=== PATIENT | male | born 1995 | race Caucasian/White ===

== ENCOUNTER 2016-03-14 23:39 | Emergency (ER) | payer MEDICAID, SELFPAY ==
[~2016-03-14 23:39] MED LIST: AUGM875T27 PO; NEUR600T PO; OXYC-517 PO; OXYC1SOL PO; VALT500T PO
[2016-03-15] MEDS ORDERED: NORCO 5/325MG TABLET (BULK) As Ordered ONE (01:02)
--- NOTE | 2016-03-15 01:09 | EDDOCDS ---
Nurse's Notes [facility] Name: Carlos Garsia Age: 20 yrs Sex: Male : 1995 Arrival Date: 03/14/2016 Time: 23:39 Bed I3 / M3 Private MD: NO PRIMARY PHYSICIAN, . Diagnosis: Encounter for other orthopedic aftercare-removal of pre existing splint to Right lower extremity, replaced by orthoglass splint Presentation: 03/14 23:47 Presenting complaint: Patient states: Broke right ankle Tuesday. Was casted . kmg1 Today toes and and foot are numb and tingly. Calf is burning. Adult Sepsis Screening: The patient does not have new or worsening altered mentation. Patient's respiratory rate is less than 22. Systolic blood pressure is greater than 100. Patient has a qSOFA score of 0- Negative Sepsis Screen. Suicide/Homicide risk assessment- the patient denies having any suicidal and/or homicidal ideations and does not present with any other emotional, behavioral or mental health complaints. Status: Patient is not a vehicle service attendant or dependent. Transition of care: patient was not received from another setting of care. 23:47 Acuity: CECI Level 5 kmg1 23:47 Method Of Arrival: Walkin/Carried/Asstd kmg1 Triage Assessment: 23:49 General: Appears in no apparent distress, comfortable, Behavior is appropriate for age, kmg1 cooperative, pleasant. Pain: Location: lateral aspect of right toes and right calf Pain currently is 7 out of 10 on a pain scale. Quality of pain is described as burning, tingling, numb. Pt Declines HIV testing. Musculoskeletal: Cast intact Reports pain in right ankle, right calf, right Achilles and anterior aspect of right ankle Numbness in right toes and foot. Historical: - Allergies: No known drug Allergies; - Home Meds: 1. none - PMHx: Seasonal Allergies; - PSHx: Hernia repair; Appendectomy; - Social history: Smoking status: Chewing Tobacco No barriers to communication noted, The patient speaks fluent Stat[place], Speaks appropriately for age. - Family history: Not pertinent. - : The pt / caregiver states he / she is not on anticoagulants. Home medication list is obtained from the patient, [employer] import data. - Exposure Risk Screening:: None identified. Screenin/16 00:43 Screening information is obtained from the patient. Fall risk: No risks identified. lf1 Assistance ADL's: requires no assistance with activities of daily living. Abuse/DV Screen: The patient / caregiver reports he/she is: not in a situation that causes fear, pain or injury. Nutritional screening: No deficits noted. Advance Directives: Currently, there is no health care proxy. home support is adequate. Assessment: 00:43 Adult Sepsis Screening: The patient does not have new or worsening altered mentation. lf1 Patient's respiratory rate is less than 22. Systolic blood pressure is greater than 100. Patient has a qSOFA score of 0- Negative Sepsis Screen. General: Appears in no apparent distress, Behavior is. Pain: Location: right foot Pain currently is 6 out of 10 on a pain scale. Neurological: Level of Consciousness is awake, alert. EENT: No deficits noted. Cardiovascular: Chest pain is denied. Respiratory: Respiratory effort is even, unlabored. GI: Denies nausea, vomiting. Derm: cast in place to right LE, pt. reports numbness and tingling to foot with burning pain in calf. 01:06 Reassessment: Patient states feeling better. Patient states symptoms have improved. [facility] Vital Signs: 03/14 23:40 BP 165 / 86; Pulse 64; Resp 18 S; Temp 98.7(O); Pulse Ox 99% on R/A; Weight 86.64 kg dd6 (R); Height 5 ft. 9 in. (175.26 cm) (R); 03/15 01:00 BP 151 / 91; Pulse 78; Resp 18; Temp 98; Pulse Ox 98% ; jlm 03/14 23:40 Body Mass Index 28.21 (86.64 kg, 175.26 cm) dd6 Vitals: 03/14 23:40 Log In Time: March 14, 2016 at 23:38. dd6 ED Course: 23:40 Patient visited by Pollo Elena PCA. dd6 23:40 NO PRIMARY PHYSICIAN, . is Private Physician. dd6 23:40 Patient moved to Waiting dd6 23:41 Patient moved to Pre RCE dd6 23:49 Triage Initiated kmg1 03/15 00:10 Raheel Nagy PA is PHCP. mo1 00:10 Ian Shahid DO is Attending Physician. mo1 00:10 Patient moved to I3 / M3 mo1 00:23 Patient visited by Raheel Nagy PA. mo1 00:43 Patient visited by Ynes Garcia RN. lf1 00:43 The patient / caregiver is instructed regarding the plan of care and ED course. lf1 00:58 Jerome Nguyen is Referral Physician. mo1 01:00 Patient visited by Yarelis Troy, Radial Drill Operator. jlm 01:06 Farzaneh Andrea LPN is Primary Nurse. slm 01:07 Assist provider with fracture care cast removed from right lower leg. slm 01:08 Patient visited by Farzaneh Andrea LPN. slm 01:08 No IV's were initiated during this patient's visit. slm Administered Medications: 01:05 Drug: HYDROcodone-acetaminophen 4 pack- 1 packets [hydrocodone 5 mg-acetaminophen 325 slm mg tablet (1 tabs)] {Co-Signature: [facility] (Ynes Garcia RN).} Route: PO; Order Results: There are currently no results for this order. Outcome: 00:58 Discharge ordered by Provider. mo1 01:07 Discharge Assessment: Patient awake, alert and oriented x 3. No cognitive and/or slm functional deficits noted. Patient verbalized understanding of disposition instructions. patient administered narcotics - no. The following High Risk Discharge criteria are identified: None. Discharged to home with crutches. Condition: good. Discharge instructions given to patient, Instructed on discharge instructions, follow up and referral plans. medication usage, no driving heavy equipment, Demonstrated understanding of instructions, medications, Pt was receptive of discharge instructions/ teaching. Prescriptions given X 1. No special radiology studies were completed. Property :Personal belongings accompany Pt. 01:08 Patient left the ED. slm Signatures: Anabella Mansfield RN RN kmg1 Ynes Garcia,RN RN lf1 Pollo Elena, PHYSICAL THERAPY ASSISTANT INSTRUCTOR PHYSICAL THERAPY ASSISTANT INSTRUCTOR dd6 Raheel Nagy PA PA mo1 Farzaneh Andrea LPN LPN [facility] Yarelis Troy, Radial Drill Operator Unit [facility] Ynes Garcia RN [facility] MTDD
--- NOTE | 2016-03-15 01:09 | EDDOCDS ---
Physician Documentation [facility] Name: Carlos Garsia Age: 20 yrs Sex: Male : 1995 Arrival Date: 03/14/2016 Time: 23:39 Bed I3 / M3 Private MD: NO PRIMARY PHYSICIAN, . Disposition: 03/15/16 00:58 Discharged to Home/Self Care. Impression: Encounter for other orthopedic aftercare - removal of pre existing splint to Right lower extremity, replaced by orthoglass splint. - Condition is Stable. - Discharge Instructions: Ankle Fracture, Cast or Splint Care. - Prescriptions for [place] 5- 325 mg Oral Tablet - take 1 tablet by ORAL route every 6 hours As needed MDD: 4 tabs; 20 tablet. - Medication Reconciliation, Local Pharmacy Hours form. - Follow up: Jerome Nguyen; When: Tomorrow; Reason: Recheck today's complaints, Continuance of care. - Problem is new. - Symptoms are unchanged. Historical: - Allergies: No known drug Allergies; - Home Meds: 1. none - PMHx: Seasonal Allergies; - PSHx: Hernia repair; Appendectomy; - Social history: Smoking status: Chewing Tobacco No barriers to communication noted, The patient speaks fluent [place], Speaks appropriately for age. - Family history: Not pertinent. - : The pt / caregiver states he / she is not on anticoagulants. Home medication list is obtained from the patient, [employer] import data. - Exposure Risk Screening:: None identified. Vital Signs: 03/14 23:40 BP 165 / 86; Pulse 64; Resp 18 S; Temp 98.7(O); Pulse Ox 99% on R/A; Weight 86.64 kg / dd6 191.01 lbs (R); Height 5 ft. 9 in. (175.26 cm) (R); 03/15 01:00 BP 151 / 91; Pulse 78; Resp 18; Temp 98; Pulse Ox 98% ; jlm 03/14 23:40 Body Mass Index 28.21 (86.64 kg, 175.26 cm) dd6 Procedures: 01:06 Fracture care/splinting: Splint applied to lateral aspect of right calf, right ankle, mo1 lateral aspect of right foot, medial aspect of right calf and medial aspect of right foot using Orthoglass splint, applied by myself. Examined by me, post splint application: neurovascular intact, Patient tolerated well, prior plaster splint removed with ortho cutting saw and manual device to remove all splint. pt with resolution of calf tingling and toe tingling with cast removal. pt had new orthoglass splint, posterior and sugar tong splint applied to right lower extremity. pt nvi, pt tolerated well. . MDM: 00:57 Splint Affected Extremity ordered. mo1 00:59 HYDROcodone-acetaminophen 4 pack- 5 mg-325 mg 1 packets PO Per package directions; mo1 Dispense with patient. 1 po q4h prn for pain ordered. 01:05 Financial registration complete. [facility] Administered Medications: 01:05 Drug: HYDROcodone-acetaminophen 4 pack- 1 packets [hydrocodone 5 mg-acetaminophen 325 slm mg tablet (1 tabs)] {Co-Signature: lf1 (Ynes Garcia RN).} Route: PO; Signatures: Anabella Mansfield RN RN kmg1 Raheel Nagy PA PA mo1 Farzaneh Andrea LPN LPN slm Hook, Sandra [facility] Ynes Garcia RN lf1 MADDY
--- NOTE | 2016-03-17 02:09 | EDDOCDS ---
Nurse's Notes [facility] Name: Carlos Garsia Age: 20 yrs Sex: Male : 1995 Arrival Date: 03/14/2016 Time: 23:39 Bed I3 / M3 Private MD: NO PRIMARY PHYSICIAN, . Diagnosis: Encounter for other orthopedic aftercare-removal of pre existing splint to Right lower extremity, replaced by orthoglass splint Presentation: 03/14 23:47 Presenting complaint: Patient states: Broke right ankle Tuesday. Was casted . kmg1 Today toes and and foot are numb and tingly. Calf is burning. Adult Sepsis Screening: The patient does not have new or worsening altered mentation. Patient's respiratory rate is less than 22. Systolic blood pressure is greater than 100. Patient has a qSOFA score of 0- Negative Sepsis Screen. Suicide/Homicide risk assessment- the patient denies having any suicidal and/or homicidal ideations and does not present with any other emotional, behavioral or mental health complaints. Status: Patient is not a implementation services analyst or dependent. Transition of care: patient was not received from another setting of care. 23:47 Acuity: CECI Level 5 kmg1 23:47 Method Of Arrival: Walkin/Carried/Asstd kmg1 Triage Assessment: 23:49 General: Appears in no apparent distress, comfortable, Behavior is appropriate for age, kmg1 cooperative, pleasant. Pain: Location: lateral aspect of right toes and right calf Pain currently is 7 out of 10 on a pain scale. Quality of pain is described as burning, tingling, numb. Pt Declines HIV testing. Musculoskeletal: Cast intact Reports pain in right ankle, right calf, right Achilles and anterior aspect of right ankle Numbness in right toes and foot. Historical: - Allergies: No known drug Allergies; - Home Meds: 1. none - PMHx: Seasonal Allergies; - PSHx: Hernia repair; Appendectomy; - Social history: Smoking status: Chewing Tobacco No barriers to communication noted, The patient speaks fluent Serbian, Speaks appropriately for age. - Family history: Not pertinent. - : The pt / caregiver states he / she is not on anticoagulants. Home medication list is obtained from the patient, [employer] import data. - Exposure Risk Screening:: None identified. Screenin/16 00:43 Screening information is obtained from the patient. Fall risk: No risks identified. lf1 Assistance ADL's: requires no assistance with activities of daily living. Abuse/DV Screen: The patient / caregiver reports he/she is: not in a situation that causes fear, pain or injury. Nutritional screening: No deficits noted. Advance Directives: Currently, there is no health care proxy. home support is adequate. Assessment: 00:43 Adult Sepsis Screening: The patient does not have new or worsening altered mentation. lf1 Patient's respiratory rate is less than 22. Systolic blood pressure is greater than 100. Patient has a qSOFA score of 0- Negative Sepsis Screen. General: Appears in no apparent distress, Behavior is. Pain: Location: right foot Pain currently is 6 out of 10 on a pain scale. Neurological: Level of Consciousness is awake, alert. EENT: No deficits noted. Cardiovascular: Chest pain is denied. Respiratory: Respiratory effort is even, unlabored. GI: Denies nausea, vomiting. Derm: cast in place to right LE, pt. reports numbness and tingling to foot with burning pain in calf. 01:06 Reassessment: Patient states feeling better. Patient states symptoms have improved. [facility] Vital Signs: 03/14 23:40 BP 165 / 86; Pulse 64; Resp 18 S; Temp 98.7(O); Pulse Ox 99% on R/A; Weight 86.64 kg dd6 (R); Height 5 ft. 9 in. (175.26 cm) (R); 03/15 01:00 BP 151 / 91; Pulse 78; Resp 18; Temp 98; Pulse Ox 98% ; jlm 03/14 23:40 Body Mass Index 28.21 (86.64 kg, 175.26 cm) dd6 Vitals: 03/14 23:40 Log In Time: March 14, 2016 at 23:38. dd6 ED Course: 23:40 Patient visited by Pollo Elena PCA. dd6 23:40 NO PRIMARY PHYSICIAN, . is Private Physician. dd6 23:40 Patient moved to Waiting dd6 23:41 Patient moved to Pre RCE dd6 23:49 Triage Initiated kmg1 03/15 00:10 Raheel Nagy PA is PHCP. mo1 00:10 Ian Shahid DO is Attending Physician. mo1 00:10 Patient moved to I3 / M3 mo1 00:23 Patient visited by Raheel Nagy PA. mo1 00:43 Patient visited by Ynes Garcia RN. lf1 00:43 The patient / caregiver is instructed regarding the plan of care and ED course. lf1 00:58 Jerome Nguyen is Referral Physician. mo1 01:00 Patient visited by Yarelis Troy, Putaway Driver. jlm 01:06 Farzaneh Andrea LPN is Primary Nurse. slm 01:07 Assist provider with fracture care cast removed from right lower leg. slm 01:08 Patient visited by Farzaneh Andrea LPN. slm 01:08 No IV's were initiated during this patient's visit. [facility] 01:30 [facility] Payment Agreement was scanned into [employer] and attached to record. [facility] 11:54 T-Sheet-- Draft Copy was scanned into [employer] and attached to record. gb Administered Medications: 01:05 Drug: HYDROcodone-acetaminophen 4 pack- 1 packets [hydrocodone 5 mg-acetaminophen 325 slm mg tablet (1 tabs)] {Co-Signature: lf1 (Ynes Garcia RN).} Route: PO; Order Results: There are currently no results for this order. Outcome: 00:58 Discharge ordered by Provider. mo1 01:07 Discharge Assessment: Patient awake, alert and oriented x 3. No cognitive and/or slm functional deficits noted. Patient verbalized understanding of disposition instructions. patient administered narcotics - no. The following High Risk Discharge criteria are identified: None. Discharged to home with crutches. Condition: good. Discharge instructions given to patient, Instructed on discharge instructions, follow up and referral plans. medication usage, no driving heavy equipment, Demonstrated understanding of instructions, medications, Pt was receptive of discharge instructions/ teaching. Prescriptions given X 1. No special radiology studies were completed. Property :Personal belongings accompany Pt. 01:08 Patient left the ED. [facility] Signatures: Anabella Mansfield, RN RN kmg1 Ailyn Fernandez, Reg Reg gb Ynes Garcia,YNES RN lf1 Pollo Elena, SCREEN PRINTING EQUIPMENT SETTER SCREEN PRINTING EQUIPMENT SETTER dd6 Raheel Nagy PA PA mo1 Farzaneh Andrea LPN LPN Yarelis Church, Putaway Driver Unit [facility] Ynes Garcia RN lf1 Chart Complete MTDD
--- NOTE | 2016-03-17 02:09 | EDDOCDS ---
Physician Documentation [facility] Name: Carlos Garsia Age: 20 yrs Sex: Male : 1995 Arrival Date: 03/14/2016 Time: 23:39 Bed I3 / M3 Private MD: NO PRIMARY PHYSICIAN, . Disposition: 03/15/16 00:58 Discharged to Home/Self Care. Impression: Encounter for other orthopedic aftercare - removal of pre existing splint to Right lower extremity, replaced by orthoglass splint. - Condition is Stable. - Discharge Instructions: Ankle Fracture, Cast or Splint Care. - Prescriptions for [place] 5- 325 mg Oral Tablet - take 1 tablet by ORAL route every 6 hours As needed MDD: 4 tabs; 20 tablet. - Medication Reconciliation, Local Pharmacy Hours form. - Follow up: Jerome Nguyen; When: Tomorrow; Reason: Recheck today's complaints, Continuance of care. - Problem is new. - Symptoms are unchanged. Historical: - Allergies: No known drug Allergies; - Home Meds: 1. none - PMHx: Seasonal Allergies; - PSHx: Hernia repair; Appendectomy; - Social history: Smoking status: Chewing Tobacco No barriers to communication noted, The patient speaks fluent Mohawk, Speaks appropriately for age. - Family history: Not pertinent. - : The pt / caregiver states he / she is not on anticoagulants. Home medication list is obtained from the patient, [employer] import data. - Exposure Risk Screening:: None identified. Vital Signs: 03/14 23:40 BP 165 / 86; Pulse 64; Resp 18 S; Temp 98.7(O); Pulse Ox 99% on R/A; Weight 86.64 kg / dd6 191.01 lbs (R); Height 5 ft. 9 in. (175.26 cm) (R); 03/15 01:00 BP 151 / 91; Pulse 78; Resp 18; Temp 98; Pulse Ox 98% ; jlm 03/14 23:40 Body Mass Index 28.21 (86.64 kg, 175.26 cm) dd6 Procedures: 01:06 Fracture care/splinting: Splint applied to lateral aspect of right calf, right ankle, mo1 lateral aspect of right foot, medial aspect of right calf and medial aspect of right foot using Orthoglass splint, applied by myself. Examined by me, post splint application: neurovascular intact, Patient tolerated well, prior plaster splint removed with ortho cutting saw and manual device to remove all splint. pt with resolution of calf tingling and toe tingling with cast removal. pt had new orthoglass splint, posterior and sugar tong splint applied to right lower extremity. pt nvi, pt tolerated well. . MDM: 00:57 Splint Affected Extremity ordered. mo1 00:59 HYDROcodone-acetaminophen 4 pack- 5 mg-325 mg 1 packets PO Per package directions; mo1 Dispense with patient. 1 po q4h prn for pain ordered. 01:05 Financial registration complete. [facility] 01:30 [facility] Payment Agreement was scanned into [employer] and attached to record. [facility] 11:54 T-Sheet-- Draft Copy was scanned into [employer] and attached to record. gb Administered Medications: 01:05 Drug: HYDROcodone-acetaminophen 4 pack- 1 packets [hydrocodone 5 mg-acetaminophen 325 slm mg tablet (1 tabs)] {Co-Signature: lf1 (Ynes Garcia RN).} Route: PO; Signatures: Anabella Mansfield, RN RN kmg1 Ailyn Fernandez, Reg Reg gb Raheel Nagy PA PA mo1 Farzaneh Andrea LPN LPN slm Hook, Sandra [facility] Ynes Garcia RN lf1 The chart was reviewed and I authenticate all verbal orders and agree with the evaluation and treatment provided.Attachments: 01:30 [facility] Payment Agreement [facility] 11:54 T-Sheet-- Draft Copy gb Chart Complete MTDD
--- NOTE | 2016-03-17 02:09 | EDDOCDS ---
Physician Documentation [facility] Name: Carlos Garsia Age: 20 yrs Sex: Male : 1995 Arrival Date: 03/14/2016 Time: 23:39 Bed I3 / M3 Private MD: NO PRIMARY PHYSICIAN, . Disposition: 03/15/16 00:58 Discharged to Home/Self Care. Impression: Encounter for other orthopedic aftercare - removal of pre existing splint to Right lower extremity, replaced by orthoglass splint. - Condition is Stable. - Discharge Instructions: Ankle Fracture, Cast or Splint Care. - Prescriptions for [place] 5- 325 mg Oral Tablet - take 1 tablet by ORAL route every 6 hours As needed MDD: 4 tabs; 20 tablet. - Medication Reconciliation, Local Pharmacy Hours form. - Follow up: Jerome Nguyen; When: Tomorrow; Reason: Recheck today's complaints, Continuance of care. - Problem is new. - Symptoms are unchanged. Historical: - Allergies: No known drug Allergies; - Home Meds: 1. none - PMHx: Seasonal Allergies; - PSHx: Hernia repair; Appendectomy; - Social history: Smoking status: Chewing Tobacco No barriers to communication noted, The patient speaks fluent Japanese, Speaks appropriately for age. - Family history: Not pertinent. - : The pt / caregiver states he / she is not on anticoagulants. Home medication list is obtained from the patient, [employer] import data. - Exposure Risk Screening:: None identified. Vital Signs: 03/14 23:40 BP 165 / 86; Pulse 64; Resp 18 S; Temp 98.7(O); Pulse Ox 99% on R/A; Weight 86.64 kg / dd6 191.01 lbs (R); Height 5 ft. 9 in. (175.26 cm) (R); 03/15 01:00 BP 151 / 91; Pulse 78; Resp 18; Temp 98; Pulse Ox 98% ; jlm 03/14 23:40 Body Mass Index 28.21 (86.64 kg, 175.26 cm) dd6 Procedures: 01:06 Fracture care/splinting: Splint applied to lateral aspect of right calf, right ankle, mo1 lateral aspect of right foot, medial aspect of right calf and medial aspect of right foot using Orthoglass splint, applied by myself. Examined by me, post splint application: neurovascular intact, Patient tolerated well, prior plaster splint removed with ortho cutting saw and manual device to remove all splint. pt with resolution of calf tingling and toe tingling with cast removal. pt had new orthoglass splint, posterior and sugar tong splint applied to right lower extremity. pt nvi, pt tolerated well. . MDM: 00:57 Splint Affected Extremity ordered. mo1 00:59 HYDROcodone-acetaminophen 4 pack- 5 mg-325 mg 1 packets PO Per package directions; mo1 Dispense with patient. 1 po q4h prn for pain ordered. 01:05 Financial registration complete. [facility] 01:30 [facility] Payment Agreement was scanned into [employer] and attached to record. [facility] 11:54 T-Sheet-- Draft Copy was scanned into [employer] and attached to record. gb Administered Medications: 01:05 Drug: HYDROcodone-acetaminophen 4 pack- 1 packets [hydrocodone 5 mg-acetaminophen 325 slm mg tablet (1 tabs)] {Co-Signature: lf1 (Ynes Garcia RN).} Route: PO; Signatures: Anabella Mansfield, RN RN kmg1 Ailyn Fernandez, Reg Reg gb Raheel Nagy PA PA mo1 Farzaneh Andrea LPN LPN slm Hook, Sandra [facility] Ynes Garcia RN lf1 The chart was reviewed and I authenticate all verbal orders and agree with the evaluation and treatment provided.Attachments: 01:30 [facility] Payment Agreement [facility] 11:54 T-Sheet-- Draft Copy gb Chart Complete MTDD
== END 2016-03-15 01:08 | disposition home or self-care (01) ==
LOC: M ED 23:39
DX: Z47.89 Encounter for other orthopedic aftercare (principal); J30.9 Allergic rhinitis, unspecified; F17.220 Nicotine dependence, chewing tobacco, uncomplicated

== ENCOUNTER 2017-02-27 14:22 | Inpatient (IN) | payer SELFPAY, MEDICAID ==
[2017-02-27 16:11] LABS: HEMATOCRIT 47.7 % (42.0-52.0); HEMOGLOBIN 16.5 g/dl (14.0-18.0); MEAN CORPUSCULAR HEMOGLOBIN 29.5 pg (27.0-33.0); MEAN CORPUSCULAR HGB CONC 34.6 g/dl (32.0-36.5); MEAN CORPUSCULAR VOLUME 85.2 fl (80.0-96.0); PLATELET COUNT, AUTOMATED 305 10^3/uL (150-450); WHITE BLOOD COUNT 6.7 10^3/uL (4.0-10.0)
[2017-02-27 16:27] LABS: ALBUMIN 4.4 GM/DL (3.2-5.2); ALBUMIN/GLOBULIN RATIO 1.22 (1.00-1.93); ALKALINE PHOSPHATASE 94 U/L (45-117); ALT/SGPT 32 U/L (12-78); ANION GAP 6 MEQ/L (8-16); AST/SGOT 13 U/L (7-37); BILIRUBIN,DIRECT 0.2 MG/DL (0.0-0.2); BLOOD UREA NITROGEN 26 MG/DL (7-18); CALCIUM LEVEL 9.5 MG/DL (8.5-10.1); CARBON DIOXIDE LEVEL 28 MEQ/L (21-32); CHLORIDE LEVEL 106 MEQ/L (98-107); CREATININE FOR GFR 1.12 MG/DL (0.70-1.30); ETHYL ALCOHOL (ETHANOL) 0.005 % (0.000-0.010); GLUCOSE, FASTING 87 MG/DL (70-105); POTASSIUM SERUM 4.4 MEQ/L (3.5-5.1); SALICYLATE LEVEL 2.7 MG/DL (5.0-30.0); SODIUM LEVEL 140 MEQ/L (136-145); THYROID STIMULATING HORMONE 0.726 uIU/ML (0.463-3.98)
[2017-02-27 16:32] LABS: ACETAMINOPHEN LEVEL < 2.0 UG/ML (10.0-30.0)
[2017-02-27 17:03] LABS: AMPHETAMINES LEVEL URINE POSITIVE (NEGATIVE); BARBITURATES URINE NEGATIVE (NEGATIVE); BENZODIAZEPINES URINE NEGATIVE (NEGATIVE); CANNABINOIDS URINE POSITIVE (NEGATIVE); COCAINE METABOLITE URINE NEGATIVE (NEGATIVE); METHADONE URINE NEGATIVE (NEGATIVE); OPIATES URINE NEGATIVE (NEGATIVE); PHENCYCLIDINE URINE NEGATIVE (NEGATIVE)
[2017-02-27] MEDS: LORazepam 2 MG TAB PO (17:54)
[2017-02-27] MEDS ORDERED: MAALOX 30 ML SUSP *UDC PO (18:00)
[2017-02-27] MEDS ORDERED: ACETAMINOPHEN TAB 650MG DOSE (2X325MG) PO (18:00)
[2017-02-27] MEDS ORDERED: HALOPERIDOL 5 MG TAB PO (18:00)
[2017-02-27] MEDS ORDERED: MOM 30ML SUSPENSION UDC PO (18:00)
[2017-02-27] MEDS ORDERED: traZODone 50 MG TAB PO (18:00)
[2017-03-01 08:17] LABS: ANION GAP 6 MEQ/L (8-16); BLOOD UREA NITROGEN 21 MG/DL (7-18); CALCIUM LEVEL 8.9 MG/DL (8.5-10.1); CARBON DIOXIDE LEVEL 28 MEQ/L (21-32); CHLORIDE LEVEL 106 MEQ/L (98-107); CREATININE FOR GFR 1.07 MG/DL (0.70-1.30); GLUCOSE, FASTING 103 MG/DL (70-105); POTASSIUM SERUM 4.4 MEQ/L (3.5-5.1); SODIUM LEVEL 140 MEQ/L (136-145)
[2017-03-02] MEDS: LORazepam 2 MG TAB PO (09:40)
== END 2017-03-02 11:45 | disposition home or self-care (01) | DRG 754 ==
LOC: M PSY 02-28 13:06 → M ED 14:22 → M ED INP 17:52 → M PSY 19:49
DX: F32.9 Major depressive disorder, single episode, unspecified (principal); F15.10 Other stimulant abuse, uncomplicated; F12.10 Cannabis abuse, uncomplicated; F17.228 Nicotine dependence, chewing tobacco, with other nicotine-induced disorders

== ENCOUNTER 2017-05-26 22:15 | Emergency (ER) | payer OTHER, MEDICAID ==
[2017-05-26] MEDS: KETOROLAC 30 MG/ML VIAL (J1885) IV (23:15)
[2017-05-26] MEDS: NS 1,000 ML IV (23:15)
[2017-05-26] MEDS: ONDANSETRON 4MG/2ML VIAL (J2405) IV (23:15)
[2017-05-26 23:44] LABS: BASO # 0.1 10^3/uL (0.0-0.2); BASO % 0.4 % (0.0-1.0); EOS # 0.2 10^3/uL (0.0-0.50); EOS % 1.4 % (0.0-3.0); HEMATOCRIT 46.3 % (42.0-52.0); HEMOGLOBIN 16.4 g/dl (13.5-17.5); IMMATURE GRANULOCYTE % 0.4 % (0-3.0); LYMPH # 0.6 10^3/uL (1.5-6.5); LYMPH % 4.5 % (24.0-44.0); MEAN CORPUSCULAR HEMOGLOBIN 29.9 pg (27.0-33.0); MEAN CORPUSCULAR HGB CONC 35.4 g/dl (32.0-36.5); MEAN CORPUSCULAR VOLUME 84.5 fl (80.0-96.0); MONO # 0.8 10^3/uL (0.0-0.8); MONO % 6.1 % (0.0-5.0); NEUTROPHILS # 12.1 10^3/uL (1.8-7.7); NEUTROPHILS % 87.2 % (36.0-66.0); PLATELET COUNT, AUTOMATED 303 10^3/uL (150-450); RED BLOOD COUNT 5.48 10^6/uL (4.30-6.10); RED CELL DISTRIBUTION WIDTH 12.6 % (11.5-14.5); WHITE BLOOD COUNT 13.9 10^3/uL (4.0-10.0)
[2017-05-27 00:04] LABS: ALBUMIN 4.5 GM/DL (3.2-5.2); ALBUMIN/GLOBULIN RATIO 1.25 (1.00-1.93); ALKALINE PHOSPHATASE 103 U/L (45-117); ALT/SGPT 14 U/L (12-78); ANION GAP 5 MEQ/L (8-16); AST/SGOT 11 U/L (7-37); BILIRUBIN,DIRECT 0.2 MG/DL (0.0-0.2); BILIRUBIN,TOTAL 0.7 MG/DL (0.2-1.0); BLOOD UREA NITROGEN 16 MG/DL (7-18); CALCIUM LEVEL 9.8 MG/DL (8.5-10.1); CARBON DIOXIDE LEVEL 27 MEQ/L (21-32); CHLORIDE LEVEL 107 MEQ/L (98-107); CREATININE FOR GFR 0.95 MG/DL (0.70-1.30); GLUCOSE, FASTING 141 MG/DL (70-100); LIPASE 83 U/L (73-393); SODIUM LEVEL 139 MEQ/L (136-145); TOTAL PROTEIN 8.1 GM/DL (6.4-8.2)
[2017-05-27] MEDS ORDERED: ISOVUE-370 76% 100ML VIAL (Q9967) As Ordered (00:49)
[2017-05-27 01:49] LABS: CALCIUM OXALATE CRYSTALS RFX SMALL; KETONE, URINE AUTO RFX 2+ mg/dL (NEGATIVE); LEUKOCYTE ESTERASE UR AUTO RFX NEGATIVE (NEGATIVE); MUCUS, URINE RFX LARGE (NEGATIVE); NITRITE, URINE AUTO RFX NEGATIVE (NEGATIVE); RBC, URINE AUTO RFX 2 /HPF (0-3); SPECIFIC GRAVITY UR AUTO RFX 1.035 (1.002-1.035); SQUAM EPITHELIAL CELL UR AURFX 0 /HPF (0-6); WBC, URINE AUTO RFX 2 /HPF (0-3)
[2017-05-27] MEDS: NORCO, ANEXSIA 5/325MG TABLET (HYDROcodone/ACETAMINOPHEN) PO (02:30)
== END 2017-05-27 02:46 | disposition home or self-care (01) ==
LOC: M ED 05-27 02:46
DX: E86.0 Dehydration (principal); R06.02 Shortness of breath; N50.811 Right testicular pain
CPT/HCPCS: J2405

== ENCOUNTER 2017-06-02 18:50 | Emergency (ER) | payer OTHER ==
[2017-06-02 20:51] LABS: BASO # 0.1 10^3/uL (0.0-0.2); BASO % 1.1 % (0.0-1.0); EOS # 0.5 10^3/uL (0.0-0.50); EOS % 7.7 % (0.0-3.0); HEMATOCRIT 40.2 % (42.0-52.0); HEMOGLOBIN 14.2 g/dl (13.5-17.5); IMMATURE GRANULOCYTE % 0.3 % (0-3.0); LYMPH # 2.3 10^3/uL (1.5-6.5); MEAN CORPUSCULAR HEMOGLOBIN 30.2 pg (27.0-33.0); MEAN CORPUSCULAR HGB CONC 35.3 g/dl (32.0-36.5); MEAN CORPUSCULAR VOLUME 85.5 fl (80.0-96.0); MONO # 0.8 10^3/uL (0.0-0.8); MONO % 10.7 % (0.0-5.0); NEUTROPHILS # 3.3 10^3/uL (1.8-7.7); NEUTROPHILS % 47.2 % (36.0-66.0); PLATELET COUNT, AUTOMATED 255 10^3/uL (150-450); RED CELL DISTRIBUTION WIDTH 13.3 % (11.5-14.5)
[2017-06-02] MEDS: ONDANSETRON 4MG/2ML VIAL (J2405) IV (20:54)
[2017-06-02] MEDS: MORPHINE 4 MG/ML 1ML VIAL (J2270) IV (20:56)
[2017-06-02] MEDS: NS 1,000 ML IV (20:57)
[2017-06-02 21:26] LABS: ACETAMINOPHEN LEVEL < 2.0 UG/ML (10.0-30.0); ALBUMIN 3.6 GM/DL (3.2-5.2); ALBUMIN/GLOBULIN RATIO 1.24 (1.00-1.93); ALKALINE PHOSPHATASE 92 U/L (45-117); ALT/SGPT 13 U/L (12-78); ANION GAP 5 MEQ/L (8-16); AST/SGOT 8 U/L (7-37); BILIRUBIN,DIRECT 0.1 MG/DL (0.0-0.2); BILIRUBIN,TOTAL 0.3 MG/DL (0.2-1.0); BLOOD UREA NITROGEN 13 MG/DL (7-18); CALCIUM LEVEL 8.6 MG/DL (8.5-10.1); CALCIUM OXALATE CRYSTALS RFX SMALL; CARBON DIOXIDE LEVEL 31 MEQ/L (21-32); CHLORIDE LEVEL 109 MEQ/L (98-107); CREATININE FOR GFR 0.86 MG/DL (0.70-1.30); ETHYL ALCOHOL (ETHANOL) < 0.003 % (0.000-0.010); GLUCOSE, FASTING 79 MG/DL (70-100); KETONE, URINE AUTO RFX NEGATIVE (NEGATIVE); LEUKOCYTE ESTERASE UR AUTO RFX NEGATIVE (NEGATIVE); LIPASE 131 U/L (73-393); MUCUS, URINE RFX SMALL (NEGATIVE); NITRITE, URINE AUTO RFX NEGATIVE (NEGATIVE); POTASSIUM SERUM 3.9 MEQ/L (3.5-5.1); RBC, URINE AUTO RFX 2 /HPF (0-3); SALICYLATE LEVEL < 1.7 MG/DL (5.0-30.0); SODIUM LEVEL 145 MEQ/L (136-145); SPECIFIC GRAVITY UR AUTO RFX 1.028 (1.002-1.035); SQUAM EPITHELIAL CELL UR AURFX 0 /HPF (0-6); THYROID STIMULATING HORMONE 0.787 uIU/ML (0.463-3.98); TOTAL PROTEIN 6.5 GM/DL (6.4-8.2); WBC, URINE AUTO RFX 3 /HPF (0-3)
[2017-06-02 21:46] LABS: AMPHETAMINES LEVEL URINE POSITIVE (NEGATIVE); BARBITURATES URINE NEGATIVE (NEGATIVE); BENZODIAZEPINES URINE NEGATIVE (NEGATIVE); CANNABINOIDS URINE POSITIVE (NEGATIVE); COCAINE METABOLITE URINE NEGATIVE (NEGATIVE); METHADONE URINE NEGATIVE (NEGATIVE); OPIATES URINE NEGATIVE (NEGATIVE); PHENCYCLIDINE URINE NEGATIVE (NEGATIVE)
[2017-06-02] MEDS ORDERED: ISOVUE-370 76% 100ML VIAL (Q9967) As Ordered (21:53)
== END 2017-06-03 00:10 | disposition home or self-care (01) ==
LOC: M ED 06-03 00:10
DX: R10.9 Unspecified abdominal pain (principal); F32.9 Major depressive disorder, single episode, unspecified; F19.90 Other psychoactive substance use, unspecified, uncomplicated
CPT/HCPCS: J2270

== ENCOUNTER 2017-06-22 11:36 | Inpatient (IN) | payer MEDICAID, OTHER ==
[2017-06-22 12:41] LABS: HEMATOCRIT 40.2 % (42.0-52.0); HEMOGLOBIN 14.2 g/dl (13.5-17.5); MEAN CORPUSCULAR HEMOGLOBIN 30.4 pg (27.0-33.0); MEAN CORPUSCULAR HGB CONC 35.3 g/dl (32.0-36.5); MEAN CORPUSCULAR VOLUME 86.1 fl (80.0-96.0); PLATELET COUNT, AUTOMATED 263 10^3/uL (150-450); RED BLOOD COUNT 4.67 10^6/uL (4.30-6.10); RED CELL DISTRIBUTION WIDTH 13.3 % (11.5-14.5)
[2017-06-22 13:09] LABS: ACETAMINOPHEN LEVEL < 2.0 UG/ML (10.0-30.0); ALBUMIN 4.1 GM/DL (3.2-5.2); ALBUMIN/GLOBULIN RATIO 1.24 (1.00-1.93); ALKALINE PHOSPHATASE 92 U/L (45-117); ALT/SGPT 12 U/L (12-78); ANION GAP 6 MEQ/L (8-16); AST/SGOT 9 U/L (7-37); BILIRUBIN,DIRECT 0.2 MG/DL (0.0-0.2); BILIRUBIN,TOTAL 0.6 MG/DL (0.2-1.0); BLOOD UREA NITROGEN 15 MG/DL (7-18); CALCIUM LEVEL 9.2 MG/DL (8.5-10.1); CARBON DIOXIDE LEVEL 27 MEQ/L (21-32); CHLORIDE LEVEL 109 MEQ/L (98-107); CREATININE FOR GFR 0.96 MG/DL (0.70-1.30); GLUCOSE, FASTING 89 MG/DL (70-100); POTASSIUM SERUM 4.1 MEQ/L (3.5-5.1); SALICYLATE LEVEL < 1.7 MG/DL (5.0-30.0); SODIUM LEVEL 142 MEQ/L (136-145); TOTAL PROTEIN 7.4 GM/DL (6.4-8.2)
[2017-06-22 13:15] LABS: ETHYL ALCOHOL (ETHANOL) < 0.003 % (0.000-0.010)
[2017-06-22 13:26] LABS: AMPHETAMINES LEVEL URINE POSITIVE (NEGATIVE); BARBITURATES URINE NEGATIVE (NEGATIVE); BENZODIAZEPINES URINE NEGATIVE (NEGATIVE); CANNABINOIDS URINE POSITIVE (NEGATIVE); COCAINE METABOLITE URINE NEGATIVE (NEGATIVE); METHADONE URINE NEGATIVE (NEGATIVE); OPIATES URINE NEGATIVE (NEGATIVE); PHENCYCLIDINE URINE NEGATIVE (NEGATIVE)
[2017-06-22] MEDS: TETRACAINE 0.5% OPHTH SOLN 4ML OU (14:30)
[2017-06-22] MEDS ORDERED: FLUORESCEIN OPHTH 1 MG STRIP As Ordered (14:57)
[2017-06-22] MEDS: CIPROFLOXACIN 0.3% OPHTH OINTMENT OD (15:15)
[2017-06-22] MEDS: AUGMENTIN 875 MG TAB PO ×2 (15:15→21:00)
[2017-06-22] MEDS ORDERED: ISOVUE-370 76% 100ML VIAL (Q9967) As Ordered (15:43)
[2017-06-22] MEDS: cefTRIAXone SOD 2 GM in D5W MINI-BAG PLUS 50 ML IV (20:33)
[2017-06-22] MEDS: CIPROFLOXACIN 0.3% OPHTH SOLN 2.5ML OD (21:08)
== END 2017-06-22 21:46 | disposition short-term general hospital (02) | DRG 881 ==
LOC: M ED 11:36 → M ED INP 14:12
DX: F32.9 Major depressive disorder, single episode, unspecified (principal); H05.011 Cellulitis of right orbit; F17.200 Nicotine dependence, unspecified, uncomplicated; F41.9 Anxiety disorder, unspecified; F15.90 Other stimulant use, unspecified, uncomplicated; F12.90 Cannabis use, unspecified, uncomplicated

== ENCOUNTER 2017-06-27 10:29 | Emergency (ER) | payer OTHER, MEDICAID ==
[2017-06-27] MEDS: NS 1,000 ML IV (13:50)
[2017-06-27 14:13] LABS: BASO # 0.1 10^3/uL (0.0-0.2); BASO % 1.3 % (0.0-1.0); EOS # 0.4 10^3/uL (0.0-0.50); EOS % 4.5 % (0.0-3.0); HEMOGLOBIN 18.2 g/dl (13.5-17.5); IMMATURE GRANULOCYTE % 0.7 % (0-3.0); LYMPH # 2.2 10^3/uL (1.5-6.5); MEAN CORPUSCULAR HEMOGLOBIN 30.6 pg (27.0-33.0); MEAN CORPUSCULAR VOLUME 87.4 fl (80.0-96.0); MONO # 0.8 10^3/uL (0.0-0.8); MONO % 8.7 % (0.0-5.0); NEUTROPHILS # 5.9 10^3/uL (1.8-7.7); NEUTROPHILS % 61.8 % (36.0-66.0); PLATELET COUNT, AUTOMATED 295 10^3/uL (150-450); RED BLOOD COUNT 5.95 10^6/uL (4.30-6.10); RED CELL DISTRIBUTION WIDTH 13.3 % (11.5-14.5); SUSPECT SAMPLE POS FLAG; WHITE BLOOD COUNT 9.5 10^3/uL (4.0-10.0)
[2017-06-27 14:23] LABS: INR 1.05; PROTHROMBIN TIME 13.8 SECONDS (12.4-14.5)
[2017-06-27 14:24] LABS: PARTIAL THROMBOPLASTIN TIME 30.2 SECONDS (26.8-37.9)
[2017-06-27 14:30] LABS: ALBUMIN 4.5 GM/DL (3.2-5.2); ALKALINE PHOSPHATASE 100 U/L (45-117); ALT/SGPT 35 U/L (12-78); ANION GAP 6 MEQ/L (8-16); AST/SGOT 33 U/L (7-37); BILIRUBIN,DIRECT < 0.1 MG/DL (0.0-0.2); BILIRUBIN,TOTAL 0.3 MG/DL (0.2-1.0); BLOOD UREA NITROGEN 10 MG/DL (7-18); C REACTIVE PROTEIN QUANTITATIV < 0.30 MG/DL (0.00-0.30); CALCIUM LEVEL 9.8 MG/DL (8.5-10.1); CARBON DIOXIDE LEVEL 30 MEQ/L (21-32); CHLORIDE LEVEL 104 MEQ/L (98-107); CREATININE FOR GFR 0.85 MG/DL (0.70-1.30); GLUCOSE, FASTING 106 MG/DL (70-100); POTASSIUM SERUM 4.6 MEQ/L (3.5-5.1); SODIUM LEVEL 140 MEQ/L (136-145); TOTAL PROTEIN 8.6 GM/DL (6.4-8.2)
[2017-06-27 14:37] LABS: ERYTHROCYTE SEDIMENTATION RATE 1 mm/hr (0-15)
[2017-06-27] MEDS ORDERED: ISOVUE-370 76% 100ML VIAL (Q9967) As Ordered (14:40)
== END 2017-06-27 16:36 | disposition short-term general hospital (02) ==
LOC: M ED 10:29
DX: H05.011 Cellulitis of right orbit (principal); H92.01 Otalgia, right ear; R51 Headache; F41.9 Anxiety disorder, unspecified; F32.9 Major depressive disorder, single episode, unspecified; F19.10 Other psychoactive substance abuse, uncomplicated; Z79.899 Other long term (current) drug therapy; Z79.2 Long term (current) use of antibiotics
CPT/HCPCS: Q9967

== ENCOUNTER 2017-08-21 19:37 | Inpatient (IN) | payer MEDICAID, OTHER ==
[2017-08-21 20:31] LABS: HEMOGLOBIN 14.5 g/dl (13.5-17.5); MEAN CORPUSCULAR HEMOGLOBIN 30.7 pg (27.0-33.0); MEAN CORPUSCULAR HGB CONC 36.3 g/dl (32.0-36.5); MEAN CORPUSCULAR VOLUME 84.7 fl (80.0-96.0); PLATELET COUNT, AUTOMATED 238 10^3/uL (150-450); RED BLOOD COUNT 4.72 10^6/uL (4.30-6.10); RED CELL DISTRIBUTION WIDTH 12.3 % (11.5-14.5); WHITE BLOOD COUNT 5.4 10^3/uL (4.0-10.0)
[2017-08-21 21:16] LABS: ALBUMIN 3.6 GM/DL (3.2-5.2); ALBUMIN/GLOBULIN RATIO 1.24 (1.00-1.93); ALKALINE PHOSPHATASE 73 U/L (45-117); ALT/SGPT 13 U/L (12-78); ANION GAP 8 MEQ/L (8-16); AST/SGOT 8 U/L (7-37); BILIRUBIN,DIRECT 0.1 MG/DL (0.0-0.2); BILIRUBIN,TOTAL 0.5 MG/DL (0.2-1.0); BLOOD UREA NITROGEN 16 MG/DL (7-18); CALCIUM LEVEL 8.1 MG/DL (8.5-10.1); CARBON DIOXIDE LEVEL 25 MEQ/L (21-32); CHLORIDE LEVEL 109 MEQ/L (98-107); CREATININE FOR GFR 0.97 MG/DL (0.70-1.30); ETHYL ALCOHOL (ETHANOL) < 0.003 % (0.000-0.010); GLUCOSE, FASTING 95 MG/DL (70-100); POTASSIUM SERUM 4.2 MEQ/L (3.5-5.1); SALICYLATE LEVEL < 1.7 MG/DL (5.0-30.0); SODIUM LEVEL 142 MEQ/L (136-145); THYROID STIMULATING HORMONE 0.506 uIU/ML (0.463-3.98); TOTAL PROTEIN 6.5 GM/DL (6.4-8.2)
[2017-08-21 21:19] LABS: ACETAMINOPHEN LEVEL < 2.0 UG/ML (10.0-30.0)
[2017-08-21] MEDS ORDERED: MAALOX 30 ML SUSP *UDC PO (22:00)
[2017-08-21] MEDS ORDERED: traZODone 50 MG TAB PO (22:00)
[2017-08-21] MEDS ORDERED: MOM 30ML SUSPENSION UDC PO (22:00)
[2017-08-21] MEDS ORDERED: NICOTINE 21MG/24HR 1 EA TRANSDERMAL TD (22:00)
[2017-08-21 22:10] LABS: AMPHETAMINES LEVEL URINE POSITIVE (NEGATIVE); BARBITURATES URINE NEGATIVE (NEGATIVE); BENZODIAZEPINES URINE NEGATIVE (NEGATIVE); CANNABINOIDS URINE POSITIVE (NEGATIVE); COCAINE METABOLITE URINE NEGATIVE (NEGATIVE); METHADONE URINE NEGATIVE (NEGATIVE); OPIATES URINE NEGATIVE (NEGATIVE); PHENCYCLIDINE URINE NEGATIVE (NEGATIVE)
[2017-08-22] MEDS: ACETAMINOPHEN TAB 650MG DOSE (2X325MG) PO (14:45)
== END 2017-08-23 13:00 | disposition home or self-care (01) | DRG 881 ==
LOC: M ED 19:37 → M PSY 22:42
DX: F32.9 Major depressive disorder, single episode, unspecified (principal); F17.220 Nicotine dependence, chewing tobacco, uncomplicated

== ENCOUNTER 2017-11-17 15:11 | Emergency (ER) | payer OTHER, MEDICAID ==
[2017-11-17] MEDS: NS 1,000 ML IV (18:18)
[2017-11-17 18:24] LABS: BASO # 0.1 10^3/uL (0.0-0.2); EOS # 0.3 10^3/uL (0.0-0.50); EOS % 6.6 % (0.0-3.0); HEMATOCRIT 41.2 % (42.0-52.0); IMMATURE GRANULOCYTE % 0.2 % (0-3.0); LYMPH # 1.5 10^3/uL (1.5-6.5); LYMPH % 30.3 % (24.0-44.0); MEAN CORPUSCULAR HEMOGLOBIN 30.4 pg (27.0-33.0); MEAN CORPUSCULAR VOLUME 89.6 fl (80.0-96.0); MONO # 0.8 10^3/uL (0.0-0.8); MONO % 16.4 % (0.0-5.0); NEUTROPHILS # 2.3 10^3/uL (1.8-7.7); NEUTROPHILS % 45.5 % (36.0-66.0); PLATELET COUNT, AUTOMATED 233 10^3/uL (150-450); RED CELL DISTRIBUTION WIDTH 13.1 % (11.5-14.5)
[2017-11-17] MEDS ORDERED: ISOVUE-370 76% 100ML VIAL (Q9967) As Ordered (19:02)
[2017-11-17 19:06] LABS: ALBUMIN 3.9 GM/DL (3.2-5.2); ALBUMIN/GLOBULIN RATIO 1.08 (1.00-1.93); ALKALINE PHOSPHATASE 80 U/L (45-117); ALT/SGPT 15 U/L (12-78); ANION GAP 7 MEQ/L (8-16); AST/SGOT 12 U/L (7-37); BILIRUBIN,DIRECT 0.1 MG/DL (0.0-0.2); BILIRUBIN,TOTAL 0.5 MG/DL (0.2-1.0); BLOOD UREA NITROGEN 18 MG/DL (7-18); C REACTIVE PROTEIN QUANTITATIV < 0.30 MG/DL (0.00-0.30); CALCIUM LEVEL 8.9 MG/DL (8.5-10.1); CARBON DIOXIDE LEVEL 29 MEQ/L (21-32); CHLORIDE LEVEL 105 MEQ/L (98-107); CREATININE FOR GFR 0.99 MG/DL (0.70-1.30); GLOMERULAR FILTRATION RATE > 60.0 (>60); GLUCOSE, FASTING 87 MG/DL (70-100); POTASSIUM SERUM 3.9 MEQ/L (3.5-5.1); SODIUM LEVEL 141 MEQ/L (136-145); TOTAL PROTEIN 7.5 GM/DL (6.4-8.2)
[2017-11-17 19:07] LABS: LACTIC ACID SEPSIS PROTOCOL 1.1 MMOL/L (0.4-2.0)
[2017-11-17 20:09] LABS: ERYTHROCYTE SEDIMENTATION RATE 9 mm/hr (0-15)
[2017-11-17] MEDS: DOXYCYCLINE HYCLATE 100 MG TAB PO (20:39)
== END 2017-11-17 20:45 | disposition home or self-care (01) ==
LOC: M ED 15:11
DX: L03.213 Periorbital cellulitis (principal); F19.10 Other psychoactive substance abuse, uncomplicated; F43.10 Post-traumatic stress disorder, unspecified; F17.220 Nicotine dependence, chewing tobacco, uncomplicated
CPT/HCPCS: Q9967

== ENCOUNTER 2017-12-20 10:39 | Emergency (ER) | payer OTHER | END 2017-12-20 13:23 | disposition home or self-care (01) | LOC: M ED 10:39 | DX: F19.10 Other psychoactive substance abuse, uncomplicated (principal); F43.10 Post-traumatic stress disorder, unspecified | CPT/HCPCS: 99284 ==

== ENCOUNTER 2018-03-27 09:22 | Emergency (ER) | payer MEDICAID, OTHER ==
[~2018-03-27] VITALS: Ht 175.3 cm; Wt 81.8 kg
[~2018-03-27 09:22] MED LIST changes: -AUGM875T27 PO; +AUGM875T28 PO; +DOXY100C37 PO; +LEVO750T13 PO; +METR-201 PO; +NEO/POLY/DEX; +NEOM10OI OD; -OXYC1SOL PO; +OXYC1SOL3 PO; +TRAZO50TA PO
[2018-03-27] MEDS ORDERED: TENECTEPLASE 50 MG KIT (TNKase)(J3101) ONE (09:23)
[2018-03-27] MEDS ORDERED: ASPIRIN 81 MG CHEW TABLET PO ONE (10:00)
[2018-03-27] MEDS: NITROGLYCERIN 0.4 MG SUBL TABLET SL PRN ×3 (10:05→10:20)
[2018-03-27] MEDS ORDERED: HEPARIN DRIP 25,000 UNITS in APPROPRIATE DILUENT 1 EA IV SCH (10:06)
[2018-03-27 10:11] LABS: BASO % 0.5 % (0.0-1.0); EOS % 0.5 % (0.0-3.0); HEMATOCRIT 43.8 % (42.0-52.0); HEMOGLOBIN 15.3 g/dl (13.5-17.5); LYMPH # 1.2 10^3/uL (1.5-6.5); LYMPH % 13.4 % (24.0-44.0); MEAN CORPUSCULAR HEMOGLOBIN 29.9 pg (27.0-33.0); MEAN CORPUSCULAR HGB CONC 34.9 g/dl (32.0-36.5); MEAN CORPUSCULAR VOLUME 85.7 fl (80.0-96.0); MONO # 1.5 10^3/uL (0.0-0.8); MONO % 17.3 % (0.0-5.0); NEUTROPHILS % 68.1 % (36.0-66.0); PLATELET COUNT, AUTOMATED 204 10^3/uL (150-450); RED BLOOD COUNT 5.11 10^6/uL (4.30-6.10); WHITE BLOOD COUNT 8.8 10^3/uL (4.0-10.0)
[2018-03-27] MEDS ORDERED: TENECTEPLASE 50 MG KIT (TNKase)(J3101) IV ONE (10:15)
[2018-03-27] MEDS ORDERED: HEPARIN SOD (PORCINE) 5000 UNITS/ML VIAL IV ONE (10:15)
[2018-03-27 10:20] VITALS: BP 141/64
[2018-03-27 10:24] LABS: INR 1.22; PROTHROMBIN TIME 15.6 SECONDS (12.1-14.4)
[2018-03-27 10:25] LABS: PARTIAL THROMBOPLASTIN TIME 30.8 SECONDS (25.4-37.6)
--- NOTE | 2018-03-27 10:29 | REP ---
Clinical: Acute chest pain . Comparison: 05/31/2017 . Findings: The mediastinum and cardiac silhouette are stable and within normal limits for portable technique. The lung barrera are clear without acute consolidation, effusion, or pneumothorax. Skeletal structures are intact. Impression: No acute cardiopulmonary process appreciated. Electronically Signed by Raúl Montero MD 03/27/2018 10:20 A
[2018-03-27 10:30] VITALS: BP 116/62
[2018-03-27] MEDS ORDERED: MORPHINE 4 MG/ML 1ML VIAL/SYRINGE (J2270) IV ONE (10:30)
[2018-03-27] MEDS ORDERED: MORPHINE 10 MG/ML 1ML VIAL (J2270) As Ordered ONE (10:31)
[2018-03-27 11:08] LABS: ALBUMIN 4.1 GM/DL (3.2-5.2); ALT/SGPT 26 U/L (12-78); BILIRUBIN,DIRECT 0.3 MG/DL (0.0-0.2); BILIRUBIN,TOTAL 0.9 MG/DL (0.2-1.0); BLOOD UREA NITROGEN 14 MG/DL (7-18); CALCIUM LEVEL 8.8 MG/DL (8.5-10.1); CARBON DIOXIDE LEVEL 27 MEQ/L (21-32); CHLORIDE LEVEL 96 MEQ/L (98-107); CPK CREATINE PHOSPHOKINASE 1078 U/L (39-308); CREATININE FOR GFR 1.25 MG/DL (0.70-1.30); FREE T4 1.52 NG/DL (0.76-1.46); GLOMERULAR FILTRATION RATE > 60.0 (>60); GLUCOSE, FASTING 123 MG/DL (70-100); LIPASE 93 U/L (73-393); MB/CK RELATIVE INDEX 5.65 (< OR =4); POTASSIUM SERUM 3.5 MEQ/L (3.5-5.1); SODIUM LEVEL 133 MEQ/L (136-145); THYROID STIMULATING HORMONE 0.718 uIU/ML (0.358-3.740); TOTAL PROTEIN 7.8 GM/DL (6.4-8.2)
--- NOTE | 2018-03-28 20:55 | ECGEPIP ---
Stationary ECG Study [facility] - ED Test Date: 2018-03-27 Pat Name: DENNIS LAI Department: Room: - Gender: M Route Driver Salesperson: : 1995 Requested By: CARLEEN Glynn Order Number: [id number] Reading MD: Jose Santiago Measurements Intervals [place] Rate: 65 P: [place]: 0 QRS: 27 QRSD: 91 T: 78 QT: 360 QTc: 375 Interpretive Statements SINUS RHYTHM BENIGN EARLY REPOLARIZATION SIMILAR TO 03/01/17 Electronically Signed On 03-28-2018 20:55:40 EST by Jose Santiago
== END 2018-03-27 11:06 | disposition home or self-care (01) ==
LOC: M ED 09:22
DX: I21.3 ST elevation (STEMI) myocardial infarction of unspecified site (principal); F15.10 Other stimulant abuse, uncomplicated; F17.228 Nicotine dependence, chewing tobacco, with other nicotine-induced disorders
CPT/HCPCS: 71045; 80048; 80076; 82550; 82553; 83690; 84439; 84443; 85025; 85610; 85730; 93005; 93041; 94760; 96374; 96375; 99291; J2270; J3101

== ENCOUNTER 2019-08-15 13:12 | Emergency (ER) | payer MEDICAID ==
[~2019-08-15] VITALS: Ht 175.3 cm; Wt 74.8 kg
[~2019-08-15 13:12] MED LIST changes: -METR-201 PO; +METR-265 PO; +TRAZ1TAB10 PO; -TRAZO50TA PO
[2019-08-15] MEDS ORDERED: IBUPROFEN 800 MG TAB PO ONE (14:45)
[2019-08-15] MEDS ORDERED: AUGM875T28 PO (14:59)
[2019-08-15 15:06] VITALS: BP 121/78
== END 2019-08-15 15:07 | disposition home or self-care (01) ==
LOC: M ED 13:12
DX: H65.01 Acute serous otitis media, right ear (principal); F33.9 Major depressive disorder, recurrent, unspecified; F41.9 Anxiety disorder, unspecified; F43.10 Post-traumatic stress disorder, unspecified

== ENCOUNTER → 2019-08-28 | Outpatient (CLI) | payer MEDICAID, SELFPAY | LOC: M OUTALCOH 09:11 | PROVIDERS: ATTEND Psychiatry & Neurology Addiction Medicine | DX: Z13.39 Encounter for screening examination for other mental health and behavioral disorders (principal); F15.20 Other stimulant dependence, uncomplicated ==

== ENCOUNTER → 2021-09-22 | Outpatient (CLI) | payer MEDICAID, OTHER ==
[~2021-09-22] MED LIST changes: +DOXY-443 PO; -DOXY100C37 PO
== END ==
LOC: M WHC 13:14
PROVIDERS: ATTEND Physician Assistant
DX: Z53.9 Procedure and treatment not carried out, unspecified reason (principal)

== ENCOUNTER → 2021-10-01 | Outpatient (CLI) | payer MEDICAID ==
[~2021-10-01] MED LIST changes: +LEVO1TAB40 PO; -LEVO750T13 PO
== END ==
LOC: M WHC 08:03
PROVIDERS: ATTEND Physician Assistant
DX: R19.09 Other intra-abdominal and pelvic swelling, mass and lump (principal)

== ENCOUNTER → 2021-12-08 | Outpatient (REF) | payer OTHER | LOC: M LAB REF 16:00 | PROVIDERS: ATTEND Surgery | DX: D23.5 Other benign neoplasm of skin of trunk (principal) ==

== ENCOUNTER → 2023-09-07 | Outpatient (CLI) | payer OTHER ==
[~2023-09-07] MED LIST changes: +DOXY-323 PO; -DOXY-443 PO
== END ==
LOC: M WUC 15:13
PROVIDERS: ATTEND Nurse Practitioner Adult Health
DX: J20.9 Acute bronchitis, unspecified (principal)

== ENCOUNTER → 2024-04-19 | Outpatient (CLI) | payer OTHER ==
[~2024-04-19] MED LIST changes: -DOXY-323 PO; +DOXY-441 PO; +METHACHOLINE KIT (6 VIAL.NEB PREMIX) INH ONE
== END ==
LOC: M CARPUL 04-05 11:08
PROVIDERS: ATTEND Physician Assistant
DX: R06.00 Dyspnea, unspecified (principal)
CPT/HCPCS: 94070; 95070; J7674